=== PATIENT | male | born 1955 | race Caucasian/White ===

== ENCOUNTER 2018-02-16 11:04 | Emergency (ER) | payer SELFPAY ==
[~2018-02-16] VITALS: Ht 162.6 cm; Wt 65.9 kg
[2018-02-16 11:16] VITALS: Ht 162.6 cm; Wt 65.9 kg
[2018-02-16] MEDS ORDERED: APAP325 MG (11:28)
[2018-02-16] MEDS ORDERED: NORCO 7.5/325 T1 TA1 PO (12:02)
[2018-02-16 12:46] VITALS: BP 180/96
== END 2018-02-16 12:52 | disposition home or self-care (01) ==
LOC: D.ER 11:04
DX: M54.16 Radiculopathy, lumbar region (principal); F17.200 Nicotine dependence, unspecified, uncomplicated